=== PATIENT | male | born 1955 | race Caucasian/White ===

== ENCOUNTER 2022-05-14 17:06 | Outpatient (CLI) | payer MEDICARE, SELFPAY ==
--- NOTE | ~2022-05-14 | XR_ITS ---
EXAMINATION: XR chest 2V DATE: 05/14/2022 17:22 INDICATION: Cough. Congestion. TECHNIQUE: Frontal and lateral views of the chest were obtained. COMPARISON: None. FINDINGS: There is mild scarring at the lung apices. No pleural effusion or pneumothorax. The heart s ize is normal. There is mild chronic anterior wedging of multiple thoracic vertebral bodies. IMPRESSION: 1. Mild scarring at the lung apices. Reviewed, dictated and finalized at location A.
== END 2022-05-14 17:07 | disposition home or self-care (01) ==
PROVIDERS: PCP Internal Medicine; Visit Provider Clinical Nurse Specialist
DX: R05.9 Cough, unspecified (principal); R91.8 Other nonspecific abnormal finding of lung field
CPT/HCPCS: 71046

== ENCOUNTER 2023-09-16 00:58 | Day surgery (SDC) | payer BC, SELFPAY ==
[2023-08-30 11:10] VITALS: BMI 24.6
--- NOTE | 2023-09-14 09:13 | SUR.PREOP ---
Patient called regarding upcoming procedure. Voicemail left regarding appointment times.
--- NOTE | 2023-09-15 17:46 | PM.HPGS ---
History of Present Illness History of Present Illness Consent: Risks, benefits, and alternatives have been discussed and questions answered. Patient agrees to proceed with procedure. Chief complaint: History colon polyps Narrative: Osmani Jim is a 68 year old male with a history of colon polyp. His last colonoscopy was 5 years ago. 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 Non-Hodgkin lymphoma Family History Family History Sibling Patient's brother is in good health Mother Family history of coronary artery disease Social History Social History Smoking status: Former smoker Tobacco type: cigarettes Smoking end date: 07/26/96 Alcohol intake: never Substance use: never Substance use type: does not use Living arrangements: with family Spiritual care concerns: No Meds Home Medications and Allergies Home Medications Medication Instructions Recorded Confirmed Type geriatric sskfzkjj-eahn-nsrc 1 tablet PO DAILY 06/01/19 08/30/23 History sertraline 100 mg tablet See Rx Instructions .Route 11/06/22 08/30/23 Rx .COMPLEX #90 tabs cyanocobalamin (vitamin B-12) 1,000 mcg IM MONTHLY 08/30/23 08/30/23 History 1,000 mcg/mL injection solution syringe with needle 3 mL 22 gauge 08/30/23 08/30/23 History x 1 Allergies Allergy/AdvReac Type Severity Reaction Status Date / Time No Known Allergies Allergy Verified 09/16/23 08:13 Exam Const: General: alert Orientation/consciousness: patient oriented x3 Resp: Auscultation: clear to auscultation bilaterally Cardio: Rhythm: regular rhythm GI: GI Palp: Yes Soft to palpation and No Tenderness to palpation present (GI) Neuro: General: patient oriented x3 Assessment and Plan Assessment and plan (1) Personal history of colonic polyps: Code(s): Z86.010 - Personal history of colonic polyps Status: Acute Assessment and Plan: Colonoscopy with possible biopsy or polypectomy or cautery or injection of substances.
[2023-09-16 08:14] VITALS: BP 123/71; PULSE 72; RESP 18; TEMP 36.6; O2SAT 72
[2023-09-16] MEDS: LACTATED RINGERS 1,000 ML 150 ML IV CONT (08:27)
--- NOTE | 2023-09-16 08:51 | WPDANESEPPF ---
Anes - Initial Pre Proc Eval Procedure: Operation Date: 09/16/23 09:30 Proposed Procedures p Colonoscopy - Nestor Conti MD Date/Time: 09/16/23 08:51 Surgeon: Nestor Conti MD Pre Op Diagnosis: History colon polyps Patient Data Age: 68 Gender: M Height: 1.73 m Weight: 70.1 kg Last Vital Signs Temp 97.9 F 09/16/23 08:14 Pulse 72 09/16/23 08:14 Resp 18 09/16/23 08:14 BP 123/71 09/16/23 08:14 Pulse Ox 72 L 09/16/23 08:14 O2 Del Method Room Air 09/16/23 08:14 Allergies Allergy/AdvReac Type Severity Reaction Status Date / Time No Known Allergies Allergy Verified 09/16/23 08:13 Home Medications Medication Instructions Recorded Confirmed Type geriatric hxjzxrsj-ssnz-zjag 1 tablet PO DAILY 06/01/19 08/30/23 History sertraline 100 mg tablet See Rx Instructions .Route 11/06/22 08/30/23 Rx .COMPLEX #90 tabs cyanocobalamin (vitamin B-12) 1,000 mcg IM MONTHLY 08/30/23 08/30/23 History 1,000 mcg/mL injection solution syringe with needle 3 mL 22 gauge 08/30/23 08/30/23 History x 1 Patient hx anesthesia problems: none Family hx anesthesia problems: none Results Review: All pre-operative results and documents have been reviewed as part of the pre-operative evaluation. 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 Non-Hodgkin lymphoma Family History Family History Sibling Patient's brother is in good health Mother Family history of coronary artery disease Social History Social History Smoking status: Former smoker Tobacco type: cigarettes Smoking end date: 07/26/96 Alcohol intake: never Substance use: never Substance use type: does not use Living arrangements: with family Spiritual care concerns: No Anes - Eval Final PreProcedure Day of Procedure 09/16/23 08:51 Patient weight: normal Heart: regular rate and rhythm Lungs: clear to auscultation Airway: Mallampati scale class II Neurological: alert and oriented Last oral intake: >/= 8 hours ASA classification: III Emergent: no Anesthetic plan: proceed Anesthesia type and monitoring: general GIVS and standard monitoring Results Review: All pre-operative results and documents have been reviewed as part of the pre-operative evaluation. Informed Consent: The patient's anesthetic plan and its attendant risks and benefits were discussed with the patient/family/POA. Questions were solicited and answers provided to the satisfaction of the patient/family/POA.
[2023-09-16 09:31] VITALS: BP 108/67; PULSE 63; RESP 20; O2SAT 100
[2023-09-16 09:41] VITALS: BP 128/71; PULSE 64; RESP 14; O2SAT 100
[2023-09-16 09:51] VITALS: BP 136/73; PULSE 61; RESP 17; O2SAT 100
== END 2023-09-16 10:01 | disposition home or self-care (01) ==
PROVIDERS: PCP Internal Medicine; Visit Provider Internal Medicine Gastroenterology
PROC: 0DJD8ZZ Inspection of Lower Intestinal Tract, Via Natural or Artificial Opening Endoscopic (ICD-10-PCS; CPT 45378; principal; 2023-09-16 09:30)
DX: Z12.11 Encounter for screening for malignant neoplasm of colon (principal); Z86.010 Personal history of colon polyps; K57.30 Diverticulosis of large intestine without perforation or abscess without bleeding; G61.0 Guillain-Barre syndrome; Z85.72 Personal history of non-Hodgkin lymphomas; F41.8 Other specified anxiety disorders; Z87.891 Personal history of nicotine dependence
CPT/HCPCS: 45378; J7120

== ENCOUNTER 2024-11-15 13:41 | Outpatient (CLI) | payer BC, SELFPAY ==
--- NOTE | ~2024-11-15 | XR_ITS ---
3 VIEWS LUMBAR SPINE Ordering provider: Jeanne Suárez NP History: . M54.50 - Low back pain, unspecified . Comparison: None. FINDINGS: VERTEBRAL BODIES: No visible fracture or subluxation. Degenerative changes of the spine. DISK SPACES: Slight narrowing of the disc L3-L4 and L4-L5 anterolisthesis Normal. SOFT TISSUES: Aortic calcification. Otherwise, Normal. Bilateral severe hip osteoarthritic changes. IMPRESSION: No acute osseous abnormality lumbar spine. Multilevel degenerative disc disease. Reviewed, dictated and finalized at location A.
== END 2024-11-15 13:42 | disposition home or self-care (01) ==
LOC: GOSHIMG 13:42
PROVIDERS: PCP Nurse Practitioner; Visit Provider Nurse Practitioner
DX: M51.369 Other intervertebral disc degeneration, lumbar region without mention of lumbar back pain or lower extremity pain (principal)
CPT/HCPCS: 72110

== ENCOUNTER 2025-01-15 09:58 | Outpatient (CLI) | payer BC, SELFPAY ==
[2025-01-15 12:50] LABS: Cholesterol 166 mg/dL (0-200); HDL Direct 47 mg/dL; Triglycerides 97 mg/dL (<150)
[2025-01-15 13:02] LABS: LDL Cholesterol Direct 76 mg/dL
== END 2025-01-15 09:59 | disposition home or self-care (01) ==
LOC: ANHGOSHLAB 09:59
PROVIDERS: PCP Nurse Practitioner; Visit Provider Nurse Practitioner
DX: I25.10 Atherosclerotic heart disease of native coronary artery without angina pectoris (principal)
CPT/HCPCS: 36415; 80061

== ENCOUNTER 2025-04-11 14:36 | Outpatient (CLI) | payer BC, SELFPAY ==
--- OUTSIDE RECORDS SUMMARY | 2025-04-11 15:15 | XMS_ITS ---
Author Organization [facility] Address [address] [place] [address] Care Team Providers Care Hopper Feeder Name Role Phone Jacob Loredo DO Primary Care Provider [phone] Active Problems Problem Noted Date Diagnosed Date Aortic atherosclerosis 12/03/2022 Overview (12/03/2022): Aortic arch as well as abdominal aorta on recent CT chest abdomen and pelvis June 2022. There may additionally be a degree of coronary calcifications. Discussed likely recommendation to start high intensity cholesterol medication pending cholesterol level. 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 Past Treatment and Therapy Plans Line Care Plan Name Start Date Discontinue Date Treatment Medications Discontinue Reason Plan Provider IV MAINTENANCE THERAPY PLAN 08/16/2019 10/05/2023 No medications scheduled. Automatic discontinuation of dormant plans Aaron Gama MD Oncology Chemotherapy Treatment Plan Name Start Date Discontinue Date Treatment Medications Discontinue Reason Plan Provider Cycles [id number] - [facility] - Lymphoma - ILyAD - RiTUXimab + Vitamin D / Placebo 0 07/13/2022 riTUXimab (RITUXAN) IVPB in 500 mL Therapy Complete Aaron Gama MD 12 of 12 cycles completed Lifetime Dose Tracking * Chemical Lifetime Dose Automatic Entry Manual Entr y DLP 4,870.2 mGycm 4,870.2 mGycm 0 mGycm Resolved Problems Problem Noted Date Diagnosed Date Resolved Date Memory loss 04/20/2022 12/03/2022
--- OUTSIDE RECORDS SUMMARY | 2025-04-11 15:15 | XMS_ITS | Encounter Summary ---
Author Organization [facility] Address [address] [place] [address] Care Team Providers Care Vp Securities Name Role Phone Jacob Loredo DO Primary Care Provider + [phone] Toshia Roca MD Primary Care Provider Jacob Loredo DO Primary Care Provider + [phone] Encounter Details Date Type Department Care Team (Late st Contact Info) Description 02/12/2020 Telephone [facility] ([facility]) [address] [place] [address] [id number] Leyla Elder, RT Social History Tobacco Use Types Packs/Day Years Used Date Smoking Tobacco: Former Cigarettes 1 20 1 09/05/1973 - 07/05/1994 Smokeless Tobacco: Never Sex and Gender Information Value Date Recorded Sex Assigned at Not on file Legal Sex Male 1:56 PM FIRE INVESTIGATOR Gender Identity Male 06/01/2021 8:13 AM FIRE INVESTIGATOR Sexual Orientation Not on file documented as of this encounter Plan of Treatment Not on file documented as of this encounter Visit Diagnoses Not on filedocumented in this encounter Care Teams Vp Securities Relationship Specialty Start Date End Date Jacob Loredo DO PCP - General Internal Medicine 06/19/19 12/02/22 Toshia Roca MD PCP - General Family Practice 12/03/22 09/27/24 Jacob Loredo DO PCP - General Internal Medicine 09/28/24 documented as of this encounter
--- OUTSIDE RECORDS SUMMARY | 2025-04-11 15:15 | XMS_ITS | Encounter Summary ---
Author Organization [facility] Address [address] [place], [place] [address] [address] Care Team Providers Care Court Administrator Name Role Phone Unavailable Primary Care Provider Unavailabl e Encounter Details Date Type Department Care Team (Late st Contact Info) Description 06/15/2019 Lab Requisition [facility] Care Pathology Lab [address] [place] [address] Felipe Linares MD [address] [facility] [address] [place] [id number] Social History Tobacco Use Types Packs/Day Years Used Date Smoking Tobacco: Never Assessed Sex and Gender Information Value Date Recorded Sex Assigned at Not on file Legal Sex Male 9:40 AM CABIN SUPERVISOR Gender Identity Not on file Sexual Orientation Not on file documented as of this encounter Plan of Treatment Not on file documented as of this encounter Procedures Procedure Name Priority Date/Time Associated Diagnosis Comments PATHOLOGY TISSUE Routine 06/13/2019 10:2 7 AM CABIN SUPERVISOR documented in this encounter Results * PATHOLOGY TISSUE (06/13/2019 10:27 AM CABIN SUPERVISOR) Case Report Surgical Pathology Report Case: [id number] Authorizing Provider: Felipe Linares MD Collected: 06/13/2019 10:27 AM Ordering Location: [facility] Care Pathology Lab Received: 06/15/2019 09:44 AM Pathologist: Mayelin Ferguson Mai, DO Specimen: Lymph Node Biopsy, [id number] 06/18/2019 5:39 PM CABIN SUPERVISOR [facility] Final Diagnosis Lymph node, left inguinal, core needle biopsies: - Follicular lymphoma, compatible with grade 1-2. - See comment and description. 06/18/2019 5:39 PM CABIN SUPERVISOR [facility] at [address] [facility] Microscopic Description and Comment Review of the left inguinal lymph node shows 2 core needle biopsies with effaced architecture and a vaguely nodular infiltrate. The background shows focal sclerosis on one edge. The nodules are composed of small to intermediate, mature lymphoid cells with angulated and focally cleaved nuclei compatible with centrocytes. Occasional mitoses and centroblasts are seen. A manual count of ten high-power eng[place] reveals <15 centroblasts/high-pow er field, compatible with grade 1-2 morphology. No extrinsic cell population, Hodgkin/[place]-Sternber g-like (HRS-like) cells, increased inflammation, necrosis or granulomas are identified. Immunohistochemical stains are performed on block A1 in the [facility] Department of Pathology, with appropriately reactive controls, and demonstrate the following: CD20, CD10, BCL-2 and BCL-6: highlights the neoplastic nodules CD3, CD5: highlights background T cells. Cyclin D1: negative in neoplastic cells. CD23: highlights follicular dendritic cell meshworks. Concurrent flow cytometry ([id number]) demonstrates [id number] mature B-cell lymphoma. 06/18/2019 5:39 PM [facility] PATH[facility] Clinical History Per report: Localized enlarged lymph nodes in the left inguinal region. Ultrasound images demonstrate multiple enlarged left inguinal lymph nodes, largest measuring 3.6 x 1.6 x 2.5 cm. 06/18/2019 5:39 PM [facility] Materials Received Received are 2 slides and 1 block labeled as [id number] along with the outside pathology report. [place] [address]. All materials are returned to the referring institution, along with a copy of our final report. 06/18/2019 5:39 PM [facility] AP Comment The findings are consistent with follicular lymphoma. The sampled material demonstrates grade 1-2 morphology. Please note that when possible, excisional lymph node biopsies are preferred over core needle biopsies for better assessment of lymph node architecture and evaluation for transformation (NCCN guidelines version 5.2019, B-cell lymphomas). Correlation with clinical findings and relevant cytogenetic/molecular testing is required. 06/18/2019 5:39 PM [facility] Disclaimer The performance characteristics of all immunohistochemical and indirect immunofluorescence stains (if any) cited in this report were determined by the Histopathology Laboratory of [facility]. Some of these tests were developed by our own laboratory and have not been cleared or approved by the US Food and Drug Administration. The FDA does not require this test to go through premarket FDA review. These tests are used for clinical purposes. They should not be regarded as investigational or for research. This laboratory is certified under the Clinical Laboratory Improvement Amendments (CLIA) as qualified to perform high complexity clinical laboratory testing. This case has been personally reviewed and interpreted by the attending (teaching) pathologist. 06/18/2019 5:39 PM [facility] Embedded Images 06/18/2019 5:39 PM [facility] Pathology/Cytolo gy BIOPSY OF LYMPH NODE / Unknown 06/13/2019 10:27 AM CABIN SUPERVISOR 06/15/2019 9:44 AM CABIN SUPERVISOR Felipe Linares MD LAB - PATHOLOGY/CYTOLOGY ORDER ELVIA Final Result [facility] PATH[facility] LAB [address] [phone] documented in this encounter Visit Diagnoses Not on filedocumented in this encounter
--- OUTSIDE RECORDS SUMMARY | 2025-04-11 15:15 | XMS_ITS | Encounter Summary ---
Author Organization [facility] Address [address] [facility] [place] [address] Care Team Providers Care Sexual Assault Social Worker Name Role Phone Unavailable Primary Care Provider Unavailabl e Encounter Details Date Type Department Care Team (Late st Contact Info) Description 06/14/2019 Lab Requisition [facility] Care Pathology Lab [address] [place] [address] Felipe Linares MD [address] [place] [phone] Localized enlarged lymph nodes Social History Tobacco Use Types Packs/Day Years Used Date Smoking Tobacco: Never Assessed Sex and Gender Information Value Date Recorded Sex Assigned at Not on file Legal Sex Male 9:40 AM AUTOMOTIVE MECHANIC Gender Identity Not on file Sexual Orientation Not on file documented as of this encounter Plan of Treatment Not on file documented as of this encounter Procedures Procedure Name Priority Date/Time Associated Diagnosis Comments FLOW CYTOMETRY TISSUE PANEL Routine 06/13/2019 9:33 AM AUTOMOTIVE MECHANIC Localized enlarged lymph nodes documented in this encounter Results * FLOW CYTOMETRY TISSUE PANEL (06/13/2019 9:33 AM AUTOMOTIVE MECHANIC) Case Report Flow Cytometry Case: [id number] Authorizing Provider: Felipe Linares MD Collected: 06/13/2019 09:33 AM Ordering Location: [facility] Care Pathology Lab Received: 06/14/2019 09:46 AM Pathologist: Mayelin Ferguson Mai, DO Specimen: Lymph Node, LEFT INGUINAL 06/14/2019 5:43 PM AUTOMOTIVE MECHANIC [facility] Final Diagnosis Lymph node, left inguinal, flow cytometric immunophenotypic analysis: - [id number] mature B-cell lymphoma. - See interpretation. 06/14/2019 5:[address] [facility] [address] [facility] Flow Cytometry Interpretation The lymph node specimen has a viability of 85%. The majority of cells are within the lymphocyte gate (96%). Within the lymphocyte gate, there is a monotypic (lambda-restricted ) B-cell population identified which exhibits aberrant co-expression of CD10. These cells express CD19, CD20, and CD23, lack expression of CD3, CD5, CD34, and comprise 45.1% of total events. There is no expanded T-cell population seen, and no significant blast population identified. A cytospin prepared from the flow cytometry specimen is reviewed for quality review trainer purposes. The lymph node specimen shows evidence of involvement by a [id number]-juukvcaa mature B-cell lymphoma. Diagnostic considerations include, but are not limited to, follicular lymphoma, diffuse large B-cell lymphoma, and Burkitt lymphoma. Correlation with clinical findings, concurrent tissue pathology, and relevant cytogenetic/molecu lar studies is required. 06/14/2019 5:43 PM [facility] Flow Cytometry Results Differential Result Comment Flow Cell Count /uL 50,000 Total Viability % 85.0 Lymphocytes % 96 Dim CD45 Region % 1 Monocytes % 1 Granulocytes % 1 06/14/2019 5:[address] [facility] Reason for test Localized enlarged lymph nodes 785.6 06/14/2019 5:43 PM [facility] Client Specimen ID # [id number] 06/14/2019 5:43 PM [facility] Number of markers 16 were performed. A-2 Flow CD10 A-4 Flow CD20 A-5 Flow CD23 A-10 Flow CD2 A-11 Flow CD3 A-12 Flow CD4 A-16 Flow CD1a A-3 Flow CD19 A-6 Flow CD34 A-7 Flow CD45 A-13 Flow CD5 A-14 Flow CD7 A-15 Flow CD8 A-17 Flow CD30 A-8 [place]+CD19+ A-9 Lambda+CD19+ 06/14/2019 5:43 PM [facility] Disclaimer Test performed at [facility], [address] [place] [address], [id number]. *The established laboratory minimum viability is 70%. Values below the minimum may result in the failure to find an abnormal population of cells. This test was developed and its performance characteristics determined by the Flow Cytometry Laboratory. It has not been cleared by the [place] Food and Drug Administration (FDA). The FDA has determined that such clearance or approval is not necessary. This test is used for clinical purposes. It should not be regarded as investigational or for research. This laboratory is regulated under the Clinical Laboratory Improvement Amendments of 1998 (CLIA) as a qualified to perform high complexity clinical testing. 06/14/2019 5:43 PM AUTOMOTIVE MECHANIC [facility] PATHOLOG[facility] LAB Embedded Images 9 5:43 PM AUTOMOTIVE MECHANIC [facility] PATHOLOGY LAB Pathology/Cytolo gy ENTIRE LYMPH NODE / Unknown 06/13/2019 9:33 AM AUTOMOTIVE MECHANIC 06/14/2019 9:46 AM AUTOMOTIVE MECHANIC Felipe Linares MD LAB - PATHOLOGY/CYTOLOGY ORDER ELVIA Final Result [facility] PATHOLOGY LAB [address] [place], [place] [id number] [place] [address] documented in this encounter Visit Diagnoses Diagnosis Localized enlarged lymph nodes Enlargement of lymph nodes documented in this encounter
--- OUTSIDE RECORDS SUMMARY | 2025-04-11 15:15 | XMS_ITS | Clinical Summary ---
Author Organization [facility] Address [address] [place] [address] Care Team Providers Care Game Tester Name Role Phone Unavailable Primary Care Provider Unavailabl e Source Comments [facility],non-owned Affiliates and Associated Physician Practices is amultiple site organization consisting of ambulatory clinics and hospital sitesin [place], [place], [place] and [place]. This disclosure is being madepursuant to the Care Everywhere program and may not contain all information available regarding this patient. Last updated 18.[facility] WebNotes Social History Tobacco Use Types Packs/Day Years Used Date Smoking Tobacco: Never Assessed Sex and Gender Information Value Date Recorded Sex Assigned at Not on file Legal Sex Male 9:40 AM HEAD OPERATOR [place] Gender Identity Not on file Sexual Orientation Not on file Plan of Treatment Health Maintenance Due Date Last Done Comments COLOGUARD (AGES 45-75) - COL ON CA SCREENING 1957 COLON MONITORING 1957 COLONOSCOPY - COLON CA SCREENING 1957 CT COLONOGRAPHY - COLON CA SCREENING 1957 Colorectal Cancer Screening 1957 FIT - COLON CA SCREENING 1957 FLEX SIG - COLON CA SCREENING 1957 LIPID TESTING 1957 HEPATITIS C SCREENING 05/15/1975 DTAP/TDAP/TD VACCINES (1 - Tdap) 1976 PNEUMOCOCCAL VACCINE 50+ (1 of 1 - PCV) 2007 ZOSTER VACCINE (1 of 2) 2007 DEPRESSION SCREENING 07/26/2024 COVID-19 VACCINE (1 - 2023-2 5 season) 2025 INFLUENZA VACCINE (#1) 2025 Respiratory Syncytial Virus (RSV) Vaccine Pt: or over 60 yrs (1 - 1-dose 75+ series) 2032 HEPATITIS B VACCINE Aged Out No longe r eligible based on patient's age to complete this topic HIB VACCINE Aged Out No longer eligi ble based on patient's age to complete this topic HPV VACCINE Aged Out No longer eligi ble based on patient's age to complete this topic MENINGOCOCCAL (Group B) VACC INE SHARED DECISION-MAKING Aged Out No longer eligibl e based on patient's age to complete this topic MENINGOCOCCAL GROUPS A/C/Y/W VACCINE Aged Out No longer eligible b ased on patient's age to complete this topic Insurance [facility] Address: [facility] [id number] [place] [address]
--- OUTSIDE RECORDS SUMMARY | 2025-04-11 15:15 | XMS_ITS | Clinical Summary ---
Author Organization [facility] Address [address] [place] [id number] Care Team Providers Care Applications Analyst Name Role Phone Unavailable Primary Care Provider Unavailabl e Allergies No known active allergies Social History Tobacco Use Types Packs/Day Years Used Date Smoking Tobacco: Never Assessed Sex and Gender Information Value Date Recorded Sex Assigned at Not on file Legal Sex Male 8:49 AM VEHICLE SAFETY INSPECTOR Gender Identity Not on file Sexual Orientation Not on file Plan of Treatment Health Maintenance Due Date Last Done Comments DTAP/TDAP/TD VACCINES (1 - Tdap) 1976 COLORECTAL SCREENING 2002 Colorectal Cancer Screening 2002 FIT-DNA Q 3 years 2002 FIT/FOBT Q 1 year 2002 Flex Sig/CT Colonography Q 5 years 2002 PNEUMOCOCCAL VACCINE 50+ YEARS (1 of 1 - PCV) 05/19/20 07 ZOSTER VACCINE (1 of 2) 2007 INFLUENZA VACCINE (#1) 2025 RSV VACCINE (60+ or ) (1 - 1-dose 75+ series) 2032 Insurance [facility]
--- OUTSIDE RECORDS SUMMARY | 2025-04-11 15:15 | XMS_ITS | Clinical Summary ---
Author Organization [facility] Address [address] [place] [address] Care Team Providers Care Social And Political Studies Professor Name Role Phone Jacob Loredo DO Primary Care Provider [phone] Allergies Active Allergy Reactions Criticality Noted Date Comments Amoxicillin-Pot Clavulanate Nausea & Vomiting High 07/07/2022 Vomiting every time he takes the pills. Not true allergy just intolerance to medication Medications multivitamin capsule Take 1 capsule by mouth daily Active sertraline (ZOLOFT) 100 mg tabletIndicati ons:Anxiety with Depression Take 1.5 tablets (150 mg total) by mouth daily 135 tablet 3 12/04/19 23 Active cyanocobalamin (Vitamin B-12) 1,000 mcg/mL injection INJECT 1ML INTRAMUSCULARLY TO DELTOID OR LATERAL THIGH ONCE MONTHLY 06/22/20 23 Active rosuvastatin (CRESTOR) 10 mg tablet Take 1 tablet (10 mg total) by mouth nightly 30 tablet 1 10/12/19 25 Active Active Problems Problem Noted Date Diagnosed Date Aortic atherosclerosis 12/03/2022 Overview (12/03/2022): Aortic arch as well as abdominal aorta on recent CT chest abdomen and pelvis June 2022. There may additionally be a degree of coronary calcifications. Discussed likely recommendation to start high intensity cholesterol medication pending cholesterol level. 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 No polyps seen but history of prior polyp removal. Repeat in [address] Conti Medical History Medical History Date Comments Non-Hodgkin lymphoma (HCC) folli cular lymphoma Depression Guillain-[place] syndrome Family History Medical History Relation Name Comments Leukemia Father Melanoma Mother Relation Name Status Comments Father Mother Social History Tobacco Use Types Packs/Day Years Used Date Smoking Tobacco: Former Cigarettes 1 20 1 09/05/1973 - 07/05/1994 Smokeless Tobacco: Never Tobacco Cessation:Counseling Given: Not Answered PHQ-2 Answer Date Recorded PHQ-2 Total Score (If total score is 3 or more points, staff should administer the PHQ-9) 0 12/03/2022 Sex and Gender Information Value Date Recorded Sex Assigned at Not on file Legal Sex Male 1:56 PM [employer] Gender Identity Male 06/01/2021 8:13 AM [employer] Sexual Orientation Not on file Obstetrics History Last Filed Vital Signs Vital Sign Reading Time Taken Comments Blood Pressure 119/64 10/11/2024 11:54 AM CDT Pulse 71 10/11/2024 11:54 AM CDT Temperature 36.3 C (97.3 F) 10/11/2024 11:54 AM CDT Respiratory Rate 18 10/11/2024 11:54 AM CDT Oxygen Saturation 99% 10/11/2024 11:54 AM CDT Inhaled Oxygen Concentration - - Weight 69.9 kg (154 lb) 10/11/2024 11:54 AM CDT Height 172.6 cm (5' 7.95) 10/11/2024 1:09 PM CD T Body Mass Index 23.45 10/11/2024 11:54 AM CDT Plan of Treatment Health Maintenance Due Date Last Done Comments Prostate Cancer Screening-PSA 1957 DTaP/Tdap/Td Vaccine (1 - Tdap) 1968 Hepatitis B Screening 1975 Pneumococcal vaccine 65+ (1 of 2 - PCV) 1976 Zoster Vaccine (1 of 2) 1976 Covid-19 Vaccine (3 - Pfizer risk series) 04/08/2021 03/11/2021, 02/18/2021 Depression Screening 12/04/2023 12/03/2022, 12/04/19 Fall Risk Assessment 12/04/2023 12/03/2022, 10/08/19 Well Visit 65+ 12/04/2023 12/03/2022 Influenza Vaccine (#1) 2025 Colon Cancer Screening-Colonoscopy 01/16/2028 01/15/2023, 08/17/2018 Hepatitis C Screening Completed 06/29/2019 Colon Cancer Screening-CT Colonography Discontinued 01/15/2023 Colon Cancer Screening-DNA Stool Discontinued 01/16/20 Colon Cancer Screening-FIT Discontinued 01/15/2023 Colon Cancer Screening-Sigmoidoscopy Discontinued 01/15/2023 Abdominal Aortic Aneurysm (A AA) Screen Completed 10/11/2024, 08/18/2023, 07/22/2022, Additional history exists Procedures Procedure Name Priority Date/Time Associated Diagnosis Comments CT CHEST ABDOMEN PELVIS W CONTRAST Schedule EDIE, Read EDIE (Appt Today, Awaiting Results) 10/11/2024 11:07 AM CDT Follicular lymphoma grade II of intrapelvic lymph nodes (HCC) COLONOSCOPY Routine 01/15/2023 4:27 PM CDT HEPATITIS C ANTIBODY Routine 06/29/2019 12:45 PM [employer] 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 Electronically signed by: Alf Virgen M.D. Narrative 10/11/2024 11:37 AM CDT EXAMINATION: Computed tomography of the chest, abdomen and pelvis with intravenous contrast HISTORY: Follicular lymphoma TECHNIQUE: Transaxial computed tomographic images of the chest, abdomen and pelvis were obtained with intravenous contrast according to the standard protocol after the uneventful administration of 118 mL Opti-Ray 350 intravenous contrast. COMPARISON: 08/18/2023 FINDINGS: Chest: Biapical scarring. No focal consolidation, pleural effusion or pneumothorax. No suspicious pulmonary nodule identified. There is no adenopathy throughout the thorax. The aorta and its branches are normal in course and contour. Heart size is normal. No pericardial effusion. There is calcified coronary atherosclerosis. Abdomen/Pelvis: Unchanged tiny hypoattenuating hepatic foci, too small to characterize. There is no intra or extrahepatic biliary ductal dilatation. The gallbladder is normal. The portal vein is patent. The stomach, right adrenal gland, pancreas, and spleen are normal. Unchanged left adrenal thickening. The kidneys symmetrically enhance and there is no focal renal lesion. There is no hydronephrosis. The urinary bladder appears normal. Unchanged cystic lesion along the bulbar urethra favored represent a Cowper's duct gland rather than a urethral diverticulum. The bowel is normal caliber. There is colonic diverticulosis without evidence of acute diverticulitis. The appendix is visualized and normal. There is no free air or fluid. There is no mesenteric, retroperitoneal or pelvic lymphadenopathy. Prominent but subcentimeter retroperitoneal lymph nodes appear unchanged. For reference a 7 mm short axis periaortic lymph node, unchanged (series 3, image 177). Abdominal aorta is atherosclerotic without aneurysm. The prostate gland is enlarged. There is no acute fracture or suspicious osseous lesion. Procedure Note Alf Virgen MD - 10/11/2024 EXAMINATION: Computed tomography of the chest, abdomen and pelvis with intravenous contrast HISTORY: Follicular lymphoma TECHNIQUE: Transaxial computed tomographic images of the chest, abdomen and pelvis were obtained with intravenous contrast according to the standard protocol after the uneventful administration of 118 mL Opti-Ray 350 intravenous contrast. COMPARISON: 08/18/2023 FINDINGS: Chest: Biapical scarring. No focal consolidation, pleural effusion or pneumothorax. No suspicious pulmonary nodule identified. There is no adenopathy throughout the thorax. The aorta and its branches are normal in course and contour. Heart size is normal. No pericardial effusion. There is calcified coronary atherosclerosis. Abdomen/Pelvis: Unchanged tiny hypoattenuating hepatic foci, too small to characterize. There is no intra or extrahepatic biliary ductal dilatation. The gallbladder is normal. The portal vein is patent. The stomach, right adrenal gland, pancreas, and spleen are normal. Unchanged left adrenal thickening. The kidneys symmetrically enhance and there is no focal renal lesion. There is no hydronephrosis. The urinary bladder appears normal. Unchanged cystic lesion along the bulbar urethra favored represent a Cowper's duct gland rather than a urethral diverticulum. The bowel is normal caliber. There is colonic diverticulosis without evidence of acute diverticulitis. The appendix is visualized and normal. There is no free air or fluid. There is no mesenteric, retroperitoneal or pelvic lymphadenopathy. Prominent but subcentimeter retroperitoneal lymph nodes appear unchanged. For reference a 7 mm short axis periaortic lymph node, unchanged (series 3, image 177). Abdominal aorta is atherosclerotic without aneurysm. The prostate gland is enlarged. There is no acute fracture or suspicious osseous lesion. IMPRESSION: No evidence of recurrent disease in the chest, abdomen or pelvis. Electronically signed by: Alf Virgen M.D. Aaron Gama MD IMG CT PROCEDURES Final Resu lt * COLONOSCOPY (01/15/2023 4:27 PM CDT) Historical Provider HEALTH MAINTENANCE Final Result * Hepatitis C antibody (06/29/2019 12:45 PM [employer]) Hep C Ab Nonreactive Nonreactive JENNIFER GREENWOOD Comment: Interpretive Data Positive results should be confirmed by a molecular method. If positive, a second separately collected sample should be submitted for Hepatitis C Virus (HCV) RNA Detection and Quantitation by Real-Time Reverse Rental Sales Agent-PCR (RT-PCR). Current interpretive data was last revised on 2016. Blood specimen (specimen) 06/29/2019 12:45 PM [employer]IST 06/29/2019 1:13 PM [employer]IST Cornelia royal [facility] MICROBIOLOGY - GENERAL ORDERABLES Edited Result - Final JENNIFER CONTRERAS [facility] Department [place] [address] from Last 3 Months or Most Recently Relevant to Health Maintenance Insurance MEDICARE OOS MEDICARE OOS ACCESS Care Teams Social And Political Studies Professor Relationship Specialty Start Date End Date Jacob Loredo DO PCP - General Internal Medicine 09/28/24
[2025-04-11 18:24] LABS: Hematocrit 41.2 % (42.0-52.0); Hemoglobin 13.1 g/dL (14.0-18.0); Immature Granulocyte Percent A 0.2 % (0-0.5); Lymphocytes Absolute Auto 1.75 K/mm3 (0.9-3.2); Mean Corpuscular HGB Conc 31.8 g/dl (32-36); Mean Corpuscular Hemoglobin 30.3 pg (26-34); Mean Corpuscular Volume 95.2 fl (80-100); Nucleated Red Blood Cells Absolute Auto 0.000 K/mm3 (0.0-0.012); Nucleated Red Blood Cells Perc 0.0 % (0.0-0.2); Platelet Count Result 173 k/mm3 (150-375); Red Blood Count 4.33 M/mm3 (4.6-6.20); White Blood Count 8.1 K/mm3 (4.5-10.0)
[2025-04-11 18:43] LABS: Alanine Aminotransferase 22 U/L (6-50); Albumin Level 4.4 g/dL (3.5-5.1); Alkaline Phosphatase 69 U/L (38-126); Anion Gap 7 mmol/L (4-12); Aspartate Amino Transferase 43 U/L (17-59); Bilirubin,Total 0.3 mg/dL (0.2-1.3); Blood Urea Nitrogen 19 mg/dL (9-20); Calcium 9.3 mg/dL (8.4-10.2); Carbon Dioxide 32 mmol/L (22-30); Chloride 99 mmol/L (98-107); Estimated Glomerular Filt Rate > 60; Glucose 72 mg/dL (65-110); Potassium 4.3 mmol/L (3.4-5.0); Sodium 138 mmol/L (137-145); Total Protein 7.3 g/dL (6.3-8.2)
[2025-04-11 19:15] LABS: Thyroid Stimulating Hormone 1.290 uIU/mL (0.465-4.680)
== END 2025-04-11 14:37 | disposition home or self-care (01) ==
LOC: ANHGOSHLAB 14:37
PROVIDERS: PCP Nurse Practitioner; Visit Provider Nurse Practitioner
DX: Z12.5 Encounter for screening for malignant neoplasm of prostate (principal); R42 Dizziness and giddiness; R51.9 Headache, unspecified
CPT/HCPCS: 36415; 80053; 84443; 85025